=== PATIENT | female | born 1955 | race Two or more races ===

== ENCOUNTER 2019-10-07 01:15 | Inpatient (IN) | payer BC, OTHER ==
[~2019-10-07] VITALS: Ht 152.4 cm; Wt 79.9 kg
[2019-10-07 04:14] LABS: Basophils # (auto) 0.1 10 ^3/uL (0-0.2); Basophils % (auto) 0.7 % (0.0-2.0); Eosinophils # (auto) 0.4 10 ^3/uL (0-0.8); Eosinophils % (auto) 4.6 % (0.0-7.0); Hematocrit 45.1 % (36.0-46.0); Hemoglobin 14.8 g/dL (12.2-16.2); Lymphocytes # (auto) 2.4 10 ^3/uL (0.4-5.4); Lymphocytes % (auto) 29.6 % (10.0-50.0); Mean Corpuscular Hemoglobin 29.9 pg (28.0-32.0); Mean Corpuscular Volume 90.7 fL (80.0-100.0); Monocytes % (auto) 11.8 % (0.0-12.0); Neutrophils # (auto) 4.3 10 ^3/uL (1.6-8.6); Neutrophils % (auto) 53.3 % (37.0-80.0); Nucleated Red Blood Cells % 0.1 %; Platelet Count (auto) 136 10^3/uL (140-450); Red Blood Cells 4.97 10^6/uL (4.0-5.20); Red Cell Distribution Width 13.4 % (11.8-14.3); White Blood Cell 8.1 10^3/uL (4.4-10.8)
[2019-10-07 04:29] LABS: Albumin 3.5 g/dL (3.4-5.0); Calcium 8.7 mg/dL (8.5-10.1); Potassium 3.2 mmol/L (3.5-5.1)
[2019-10-07 04:32] LABS: Bilirubin, Total 0.6 mg/dL (0.2-1.0); Total Protein 7.1 g/dL (6.4-8.2)
[2019-10-07 05:59] LABS: Urine Bacteria FEW /hpf (None Seen); Urine Blood Negative /uL (Negative); Urine Hyaline Cast FEW /lpf (0 - 2); Urine Mucus FEW (None Seen); Urine Specific Gravity 1.011 (1.001-1.035); Urine WBC 1 /hpf (0 - 5)
[2019-10-07] MEDS ORDERED: ONDANSETRON HCL 4 MG/2 ML VIAL IV PRN (07:30)
[2019-10-07] MEDS ORDERED: TEMAZEPAM 15 MG CAP PO PRN (07:30)
[2019-10-07] MEDS ORDERED: ACETAMINOPHEN 325 MG TAB PO PRN (07:30)
[2019-10-07] MEDS ORDERED: POTASSIUM CHL 20 Meq TABLET PO ONE (07:30)
[2019-10-07] MEDS ORDERED: POTASSIUM CHL 20MEQ/100ML 100 ML IV ONE (07:45)
[2019-10-07 08:20] LABS: Alcohol, Urine < 3.0 mg/dL (0-10); Amphetamine Screen, Urine NEGATIVE (NEGATIVE); Barbiturate Scree,Urine NEGATIVE (NEGATIVE); Benzodiazephine Screen, Urine NEGATIVE (NEGATIVE); Cannabinoid Screen, Urine NEGATIVE (NEGATIVE); Cocaine Screen, Urine NEGATIVE (NEGATIVE); Opiate Scree,Urine NEGATIVE (NEGATIVE); Phencyclidine Screen, Urine NEGATIVE (NEGATIVE)
[2019-10-07] MEDS: LISINOPRIL 10 MG TAB PO SCH (10:00)
[2019-10-07] MEDS: FAMOTIDINE 20 MG TAB PO SCH ×2 (10:00→22:09)
[2019-10-07] MEDS: ENOXAPARIN SOD 40 MG/0.4 ML SYRINGE SC SCH (10:21)
[2019-10-07 10:55] LABS: Folate (Folic Acid) 10.74 ng/mL (5.38-24)
[2019-10-07] MEDS ORDERED: LORazepam 2MG/ML-1ML VIAL IV PRN (11:45)
[2019-10-07] MEDS ORDERED: ASPI-498 OR (16:15)
[2019-10-07 17:04] VITALS: BP 120/71
[2019-10-07] MEDS: traZODone HCL 50 MG TAB PO SCH (22:09)
[2019-10-07] MEDS: ATORVASTATIN 20 MG TAB PO SCH (22:10)
[2019-10-07] MEDS: DONEPEZIL HYDROCHLORIDE 5 MG TAB PO SCH (22:10)
[2019-10-07 23:49] VITALS: BP 103/82
[2019-10-08 05:27] VITALS: BP 126/66
[2019-10-08 05:57] LABS: Basophils # (auto) 0.1 10 ^3/uL (0-0.2); Basophils % (auto) 1.2 % (0.0-2.0); Eosinophils # (auto) 0.5 10 ^3/uL (0-0.8); Hematocrit 40.2 % (36.0-46.0); Hemoglobin 13.7 g/dL (12.2-16.2); Lymphocytes # (auto) 2.3 10 ^3/uL (0.4-5.4); Lymphocytes % (auto) 40.4 % (10.0-50.0); Mean Corpuscular Hemoglobin 30.6 pg (28.0-32.0); Mean Corpuscular Hgb Conc. 34.1 g/dL (32.0-36.0); Mean Corpuscular Volume 89.8 fL (80.0-100.0); Monocytes # (auto) 0.6 10 ^3/uL (0-1.3); Monocytes % (auto) 10.1 % (0.0-12.0); Neutrophils # (auto) 2.3 10 ^3/uL (1.6-8.6); Neutrophils % (auto) 39.3 % (37.0-80.0); Nucleated Red Blood Cells % 0.1 %; Platelet Count (auto) 117 10^3/uL (140-450); Red Blood Cells 4.48 10^6/uL (4.0-5.20); Red Cell Distribution Width 13.6 % (11.8-14.3); White Blood Cell 5.8 10^3/uL (4.4-10.8)
[2019-10-08 06:20] LABS: Potassium 3.9 mmol/L (3.5-5.1)
[2019-10-08 06:32] LABS: BUN/Creatinine Ratio 14.8; Magnesium 2.2 mg/dL (1.6-2.6)
[2019-10-08 09:00] VITALS: BP 113/50
[2019-10-08] MEDS: ENOXAPARIN SOD 40 MG/0.4 ML SYRINGE SC SCH (09:32)
[2019-10-08] MEDS: FAMOTIDINE 20 MG TAB PO SCH ×2 (09:32→21:34)
[2019-10-08 09:56] LABS: Hepatitis B Surface Antibody Negative
[2019-10-08] MEDS: LISINOPRIL 10 MG TAB PO SCH (10:13)
[2019-10-08 10:34] LABS: Hepatitis A Total Antibody Positive
[2019-10-08] MEDS ORDERED: ATOR40TA52 PO (11:20)
[2019-10-08] MEDS ORDERED: LISI10TA6 PO (11:20)
[2019-10-08] MEDS ORDERED: TRAZ-181 PO (11:20)
[2019-10-08] MEDS ORDERED: HYDR50TA69 PO (11:20)
[2019-10-08] MEDS ORDERED: CLOP75TA41 PO (11:20)
[2019-10-08] MEDS ORDERED: DONE5TAB31 PO (11:21)
[2019-10-08] MEDS ORDERED: AML5T PO (11:22)
[2019-10-08 11:57] LABS: Hepatitis B Surface Antigen Negative (Negative)
[2019-10-08 11:58] LABS: Hepatitis B Core Total AB Negative; Hepatitis C Antibody Negative (Negative)
[2019-10-08 13:00] VITALS: BP 112/56
[2019-10-08 17:00] VITALS: BP 126/75
[2019-10-08] MEDS ORDERED: LORazepam 2MG/ML-1ML VIAL IV PRN (19:15)
[2019-10-08] MEDS: traZODone HCL 50 MG TAB PO SCH (21:33)
[2019-10-08] MEDS: DONEPEZIL HYDROCHLORIDE 5 MG TAB PO SCH (21:33)
[2019-10-08] MEDS: ATORVASTATIN 20 MG TAB PO SCH (21:34)
[2019-10-08 22:14] VITALS: BP 131/75
[2019-10-09 05:30] VITALS: BP 119/72
[2019-10-09 09:00] VITALS: BP 164/77
[2019-10-09] MEDS: FAMOTIDINE 20 MG TAB PO SCH ×2 (09:36→22:21)
[2019-10-09] MEDS: ASPirin-EC 81 mg tab PO SCH (09:36)
[2019-10-09] MEDS: ENOXAPARIN SOD 40 MG/0.4 ML SYRINGE SC SCH (09:36)
[2019-10-09] MEDS: LISINOPRIL 10 MG TAB PO SCH (09:38)
[2019-10-09 13:00] VITALS: BP 164/76
[2019-10-09 15:55] VITALS: BP 147/76
[2019-10-09 17:00] VITALS: BP 147/76
[2019-10-09 22:00] VITALS: BP 132/64
[2019-10-09] MEDS: ATORVASTATIN 20 MG TAB PO SCH (22:21)
[2019-10-09] MEDS: traZODone HCL 50 MG TAB PO SCH (22:21)
[2019-10-09] MEDS: DONEPEZIL HYDROCHLORIDE 5 MG TAB PO SCH (22:21)
[2019-10-10 05:00] VITALS: BP 107/50
[2019-10-10 09:00] VITALS: BP 138/69
[2019-10-10] MEDS: FAMOTIDINE 20 MG TAB PO SCH (10:11)
[2019-10-10] MEDS: ASPirin-EC 81 mg tab PO SCH (10:12)
[2019-10-10] MEDS: LISINOPRIL 10 MG TAB PO SCH (10:12)
[2019-10-10] MEDS: ENOXAPARIN SOD 40 MG/0.4 ML SYRINGE SC SCH (10:12)
[2019-10-10 13:00] VITALS: BP 132/82
[2019-10-10 17:00] VITALS: BP 126/76
== END 2019-10-10 18:00 | disposition home health service (06) | DRG 64 ==
LOC: ER 01:15 → EDBD 01:15 → OVERFLOW 01:16 → WEST WING 15:01 → TELE-WESTW 10-09 03:46
PROVIDERS: ADMIT Nurse Practitioner; ATTEND Internal Medicine
DX: I63.531 Cerebral infarction due to unspecified occlusion or stenosis of right posterior cerebral artery (principal); G92 Toxic encephalopathy; F23 Brief psychotic disorder; F02.81 Dementia in other diseases classified elsewhere, unspecified severity, with behavioral disturbance; F01.51 Vascular dementia, unspecified severity, with behavioral disturbance; R62.7 Adult failure to thrive; E87.6 Hypokalemia; Z86.73 Personal history of transient ischemic attack (TIA), and cerebral infarction without residual deficits; F31.9 Bipolar disorder, unspecified; I10 Essential (primary) hypertension; Z79.82 Long term (current) use of aspirin; Z79.899 Other long term (current) drug therapy; Z80.3 Family history of malignant neoplasm of breast; G30.9 Alzheimer's disease, unspecified
CPT/HCPCS: 36415; 51702; 70450; 70551; 80048; 80053; 80307; 81001; 82607; 82746; 83735; 84439; 84443; 85025; 86703; 86704; 86706; 86708; 86803; 87340; 93005; 93306; 93886; 95819; 96365; 96366; 96372; 97110; 97116; 97530; G0378; J3480